=== PATIENT | female | born 1925 | race Caucasian/White ===

== ENCOUNTER → 2016-08-14 | Outpatient (CLI) | payer MEDICARE ==
[~2016-08-14] MED LIST: ADULT LOW DOSE81 MG PO; AMLODIPINE BES2.5 MG PO; AMLOPIDINE PO; ASPIRIN E.C. 8181 M1 PO; BYSTOLIC10 MG PO; BYSTOLIC20 MG PO; COUMADIN 4MG4 MG/TAB PO; COUMADIN 6MG6 MG/TAB PO; DOCUSATE SODIU100 M3 PO; ENSURE 237 ML237 ML PO; GLUCOSAMINE & C1 CA2 PO; HYDROCHLOROTH12.5 M1 PO; K-TAB20 MEQ PO; LISINOPRIL20 MG PO; MACROBID 100 M100 MG PO; MASON NATURAL1000 IU PO; MECLIZINE PO; METOPROLOL SUCC50 M1 PO; MIRALAX17 GM PO; MIRALAX17 GM/DOSE PO; NORVASC 10MG10 MG PO; NORVASC 5MG5 MG/TAB PO; ONE DAILY1 TA1 PO; PREDNISONE20 MG PO; TOPROL XL 50MG50 MG PO; TUSS PO; TYLENOL 325MG325 MG PO; VIBRAMYCIN HYC100 MG PO; VITAMIN D3400 UNIT PO; WARFARIN4 MG PO; ZESTRIL40 M1 PO; ZOFRAN4 M1 PO; ZYRTEC10 M3 PO; [UNRECOGNIZED DRUG - OTHER] PO
== END ==
LOC: LAB 11:30
DX: I48.4 Atypical atrial flutter (principal)

== ENCOUNTER 2016-08-24 18:49 | Emergency (ER) | payer MEDICARE ==
[~2016-08-24 18:49] MED LIST changes: -ADULT LOW DOSE81 MG PO; -COUMADIN 6MG6 MG/TAB PO; -DOCUSATE SODIU100 M3 PO; -ENSURE 237 ML237 ML PO; -HYDROCHLOROTH12.5 M1 PO; -K-TAB20 MEQ PO; -MACROBID 100 M100 MG PO; -MECLIZINE PO; -METOPROLOL SUCC50 M1 PO; -NORVASC 10MG10 MG PO; -NORVASC 5MG5 MG/TAB PO; -TOPROL XL 50MG50 MG PO; -VITAMIN D3400 UNIT PO; -ZESTRIL40 M1 PO; -[UNRECOGNIZED DRUG - OTHER] PO
[2016-08-24] MEDS ORDERED: HYDROCHLOROTH12.5 M1 PO (20:11)
[2016-08-24] MEDS ORDERED: MECLIZINE PO (23:39)
[2016-08-24] MEDS ORDERED: MACROBID 100 M100 MG PO (23:39)
[2016-08-24] MEDS ORDERED: METOPROLOL SUCC50 M1 PO (23:39)
[2016-08-24] MEDS ORDERED: K-TAB20 MEQ PO (23:39)
[2016-08-24 23:58] VITALS: BP 137/94
[2016-12-07] MEDS ORDERED: NORVASC 5MG5 MG/TAB PO (19:55)
[2016-12-07] MEDS ORDERED: ZESTRIL40 M1 PO (19:56)
[2016-12-07] MEDS ORDERED: TOPROL XL 50MG50 MG PO (19:56)
[2016-12-07] MEDS ORDERED: ADULT LOW DOSE81 MG PO (19:56)
[2016-12-07] MEDS ORDERED: COUMADIN 4MG4 MG/TAB PO ×2 (19:57)
[2016-12-07] MEDS ORDERED: GLUCOSAMINE & C1 CA2 PO (19:58)
[2016-12-07] MEDS ORDERED: VITAMIN D3400 UNIT PO (19:58)
[2016-12-07] MEDS ORDERED: MECLIZINE PO (19:59)
[2016-12-07] MEDS ORDERED: ENSURE 237 ML237 ML PO (19:59)
[2016-12-07] MEDS ORDERED: COUMADIN 6MG6 MG/TAB PO (20:00)
[2016-12-07] MEDS ORDERED: DOCUSATE SODIU100 M3 PO (20:00)
== END 2016-08-24 23:58 | disposition home or self-care (01) ==
LOC: ED 18:49
DX: R42 Dizziness and giddiness (principal); I10 Essential (primary) hypertension; E87.1 Hypo-osmolality and hyponatremia; E87.6 Hypokalemia; E87.3 Alkalosis; E87.8 Other disorders of electrolyte and fluid balance, not elsewhere classified; Z79.01 Long term (current) use of anticoagulants; Z79.82 Long term (current) use of aspirin
CPT/HCPCS: J3480; J7030

== ENCOUNTER 2016-08-30 14:37 | Emergency (ER) | payer MEDICARE ==
[~2016-08-30 14:37] MED LIST changes: -ADULT LOW DOSE81 MG PO; -COUMADIN 6MG6 MG/TAB PO; -DOCUSATE SODIU100 M3 PO; -ENSURE 237 ML237 ML PO; -NORVASC 10MG10 MG PO; -NORVASC 5MG5 MG/TAB PO; -TOPROL XL 50MG50 MG PO; -VITAMIN D3400 UNIT PO; -ZESTRIL40 M1 PO; -[UNRECOGNIZED DRUG - OTHER] PO
[2016-08-30] MEDS ORDERED: [UNRECOGNIZED DRUG - OTHER] PO (15:07)
[2016-08-30] MEDS ORDERED: NORVASC 10MG10 MG PO (15:08)
[2016-08-30] MEDS ORDERED: MECLIZINE PO (15:09)
[2016-08-30 18:29] VITALS: BP 156/76
[2016-12-07] MEDS ORDERED: NORVASC 5MG5 MG/TAB PO (19:55)
[2016-12-07] MEDS ORDERED: ZESTRIL40 M1 PO (19:56)
[2016-12-07] MEDS ORDERED: TOPROL XL 50MG50 MG PO (19:56)
[2016-12-07] MEDS ORDERED: ADULT LOW DOSE81 MG PO (19:56)
[2016-12-07] MEDS ORDERED: COUMADIN 4MG4 MG/TAB PO ×2 (19:57)
[2016-12-07] MEDS ORDERED: VITAMIN D3400 UNIT PO (19:58)
[2016-12-07] MEDS ORDERED: GLUCOSAMINE & C1 CA2 PO (19:58)
[2016-12-07] MEDS ORDERED: ENSURE 237 ML237 ML PO (19:59)
[2016-12-07] MEDS ORDERED: MECLIZINE PO (19:59)
[2016-12-07] MEDS ORDERED: COUMADIN 6MG6 MG/TAB PO (20:00)
[2016-12-07] MEDS ORDERED: DOCUSATE SODIU100 M3 PO (20:00)
== END 2016-08-30 18:29 | disposition home or self-care (01) ==
LOC: ED 14:37
DX: E87.1 Hypo-osmolality and hyponatremia (principal); I10 Essential (primary) hypertension; E87.6 Hypokalemia
CPT/HCPCS: J7030

== ENCOUNTER → 2016-08-30 | Outpatient (CLI) | payer MEDICARE ==
[~2016-08-30] MED LIST changes: +ADULT LOW DOSE81 MG PO; +COUMADIN 6MG6 MG/TAB PO; +DOCUSATE SODIU100 M3 PO; +ENSURE 237 ML237 ML PO; +HYDROCHLOROTH12.5 M1 PO; +K-TAB20 MEQ PO; +MACROBID 100 M100 MG PO; +MECLIZINE PO; +METOPROLOL SUCC50 M1 PO; +NORVASC 10MG10 MG PO; +NORVASC 5MG5 MG/TAB PO; +TOPROL XL 50MG50 MG PO; +VITAMIN D3400 UNIT PO; +ZESTRIL40 M1 PO; +[UNRECOGNIZED DRUG - OTHER] PO
== END ==
LOC: LAB 12:05
DX: I10 Essential (primary) hypertension (principal); N39.0 Urinary tract infection, site not specified; R42 Dizziness and giddiness; I48.92 Unspecified atrial flutter

== ENCOUNTER 2016-09-01 22:52 | Emergency (ER) | payer MEDICARE ==
[~2016-09-01 22:52] MED LIST changes: +NORVASC 10MG10 MG PO; +[UNRECOGNIZED DRUG - OTHER] PO
[2016-12-07] MEDS ORDERED: NORVASC 5MG5 MG/TAB PO (19:55)
[2016-12-07] MEDS ORDERED: TOPROL XL 50MG50 MG PO (19:56)
[2016-12-07] MEDS ORDERED: ADULT LOW DOSE81 MG PO (19:56)
[2016-12-07] MEDS ORDERED: ZESTRIL40 M1 PO (19:56)
[2016-12-07] MEDS ORDERED: COUMADIN 4MG4 MG/TAB PO ×2 (19:57)
[2016-12-07] MEDS ORDERED: GLUCOSAMINE & C1 CA2 PO (19:58)
[2016-12-07] MEDS ORDERED: VITAMIN D3400 UNIT PO (19:58)
[2016-12-07] MEDS ORDERED: ENSURE 237 ML237 ML PO (19:59)
[2016-12-07] MEDS ORDERED: MECLIZINE PO (19:59)
[2016-12-07] MEDS ORDERED: COUMADIN 6MG6 MG/TAB PO (20:00)
[2016-12-07] MEDS ORDERED: DOCUSATE SODIU100 M3 PO (20:00)
== END 2016-09-02 03:02 | disposition home or self-care (01) ==
LOC: ED 22:52
DX: M17.0 Bilateral primary osteoarthritis of knee (principal); R54 Age-related physical debility; I48.91 Unspecified atrial fibrillation; Z91.81 History of falling